=== PATIENT | male | born 1955 | race Caucasian/White ===

== ENCOUNTER 2019-12-29 17:59 | Emergency (ER) | payer OTHER ==
[~2019-12-29] VITALS: Ht 172.7 cm; Wt 91.6 kg
[2019-12-29 18:06] VITALS: BP 144/77
[2019-12-29] MEDS: KETOROLAC 30 MG/ML VIAL IM ONE (18:41)
[2019-12-29 19:21] VITALS: BP 144/77
== END 2019-12-29 19:21 | disposition home or self-care (01) ==
LOC: MED 17:59
DX: S13.4XXA Sprain of ligaments of cervical spine, initial encounter (principal); V89.2XXA Person injured in unspecified motor-vehicle accident, traffic, initial encounter; Y93.89 Activity, other specified; Y92.89 Other specified places as the place of occurrence of the external cause; Y99.8 Other external cause status
CPT/HCPCS: 72040; 96372; 99283; J1885; Q0092